=== PATIENT | male | born 1990 | race Caucasian/White ===

== ENCOUNTER 2021-02-02 13:22 | Emergency (ER) | payer MEDICAID, SELFPAY ==
[2021-02-02 13:30] VITALS: BP 136/75; PULSE 79; RESP 18; TEMP 37.3; O2SAT 100; BMI 18.6
--- NOTE | 2021-02-02 14:13 | HMH.EDUTC ---
[facility] Disposition Clinical Impression: Nausea & vomiting Qualifiers: Vomiting type: unspecified Vomiting Intractability: non-intractable Qualified Code(s): R11.2 - Nausea with vomiting, unspecified Diarrhea Qualifiers: Diarrhea type: unspecified type Qualified Code(s): R19.7 - Diarrhea, unspecified Disposition: Home, Self-Care Condition on Discharge: Good Instructions: Nausea and Vomiting-Adult, Diarrhea Additional Instructions: Monitor temperature. Seek treatment if fever develops. Follow-up immediately if new or worse symptoms worsen or no noticeable improvement over 48 hours. Increase fluids such as water, Gatorade, Powerade, juice or Pedialyte with limited formula/dietary in children No food is okay as long as you are drinking. Once ready to eat start bland such as bananas, rice, applesauce, toast. Contagious until no diarrhea, vomiting, fever times 48 hours without medication Avoid antidiarrheals unless told otherwise. Best to let the virus run its course. Follow-up immediately for new or worsening symptoms or no noticeable improvement over the next 48 hours. Prescriptions: ondansetron HCL [Zofran 4mg Tab*] 4 mg PO TIDP PRN 3 Days #10 tab PRN Reason: Nausea Transmission Status: Pending to [id number] Referrals: Rafaela Marroquin [Primary Care Provider] - Forms: Work/School Release Time of Disposition: 14:20 Medical Decision Making - Fernando Inquiry Pt receiving controlled substance: No Vital Signs: 02/02/21 13:30 Temperature 99.1 F Temperature Source Temporal Artery Scan Pulse Rate [Right Brachial] 79 Respiratory Rate 18 Blood Pressure [Right Arm] 136/75 Blood Pressure Mean [Right Arm] 95 Blood Pressure Source [Right Arm] Automatic Cuff Blood Pressure Position [Right Arm] Sitting 02 Sat by Pulse Oximetry 100 Oxygen Delivery Method Room Air Orders (Tests/Meds): ORDERS Category Date Time Status Covid-19 Nasal PCR ([facility]) Routine Lab 02/02/21 14:13 Ordered [facility] HPI - General Chief complaint: Urgent [facility] Stated complaint: fever, cough, vomiting, diarrhea Time Seen by Provider: 02/02/21 14:14 Mode of Arrival: Ambulatory Source of Information: Patient Limitations: No Limitations Description of Symptoms (Recalled from Triage Doc. by RN): PATIENT C/O VOMITING, DIARRHEA, CONGESTION, COUGH AND CHILLS THAT STARTED YESTERDAY HEENT Symptoms (Recalled from RN notes): Yes Resp Symptoms (Recalled from RN notes): No Skin Symptoms (Recalled from RN notes): No MS Symptoms (Recalled from RN notes): No Functional Status (Recalled from RN notes): WNL - History of Present Illness Provider Complaint: 30 yr old male presents for congestion,cough, n/v/d and chills that started last pm at work. pt states numerous co workers at [employer] have had same symptoms. pt states 3 diarreha today and no vomiting today 3 times last pm, denies fever. - Related Data Previous Rx's Medication Instructions Recorded ondansetron HCL [Zofran 4mg Tab*] 4 mg PO TIDP PRN 3 Days #10 tab 02/02/21 Allergies Allergy/AdvReac Type Severity Reaction Status Date / Time codeine [CODEINE] Allergy Unknown Verified 02/02/21 14:00 latex [LATEX] Allergy Unknown Verified 02/02/21 14:00 - Worker's Comp Is this a Worker's Comp case?: No [facility] History - Hepatitis A Screen Drug use history?: No High risk sexual behaviors?: No History of sexually transmitted infection?: No Currently employed?: No Childcare worker?: No Do you have indoor plumbing?: Yes Do you have electricity?: Yes Attestation statement:: This patient has been screened for Hepatitis A risk factors. I have reviewed the patient's past medical history: Yes ROS Obtained: Yes Systems reviewed as appropriate & no additional complaints - Constitutional Constitutional: Reports system reviewed and no additional complaints, except as docu, Reports chills, Denies fatigue, Denies fever(s) - Eyes Eyes: Reports system reviewed and no add
[2021-02-02 14:19] VITALS: BP 136/75; PULSE 79; RESP 18; TEMP 37.3; O2SAT 100
== END 2021-02-02 14:24 | disposition home or self-care (01) ==
PROVIDERS: Emergency Provider Nurse Practitioner Family; PCP Family Medicine
DX: R11.2 Nausea with vomiting, unspecified (principal); R19.7 Diarrhea, unspecified; Z20.822 Contact with and (suspected) exposure to COVID-19
CPT/HCPCS: 99202; C9803; G0463; U0003; U0005

== ENCOUNTER 2024-02-09 12:10 | Outpatient (CLI) | payer MEDICAID, SELFPAY ==
[2024-02-09 18:45] LABS: Chloride 110 mmol/L (98-107)
[2024-02-09 18:46] LABS: Albumin Level 4.7 g/dl (3.5-5.0); Potassium 4.2 mmoL/L (3.5-5.1); Sodium 140 mmol/L (136-145)
[2024-02-09 18:48] LABS: Alanine Aminotransferase 13 U/L (12-78); Aspartate Amino Transferase 19 U/L (17-59); Blood Urea Nitrogen 13 mg/dl (9-20); Estimated Glomerular Filt Rate 111 ml/min (>60); GFR (African American) 134 ML/MIN (>60)
[2024-02-09 18:49] LABS: Albumin/Globulin Ratio 2.2 (1.1-1.8); Alkaline Phosphatase 54 U/L (38-126); Anion Gap 12.2 mEq/L (5-15); Bilirubin,Total 0.9 mg/dl (0.2-1.3); Calcium 9.5 mg/dl (8.4-10.2); Carbon Dioxide 22 mmol/L (22.0-30.0); Globulin 2.1 g/dL (1.3-3.2); Glucose 109 mg/dl (74-100); Total Protein,Serum 6.8 g/dl (6.3-8.2)
[2024-02-09 19:18] LABS: Thyroid Stimulating Hormone 1.23 uIU/mL (0.465-4.68)
[2024-02-09 20:10] LABS: Vitamin B12 469 pg/mL (239-931)
== END 2024-02-09 23:59 | disposition home or self-care (01) ==
LOC: LAB.DROPOF 02-10 10:03
PROVIDERS: PCP Family Medicine; Visit Provider Family Medicine
DX: R42 Dizziness and giddiness (principal)
CPT/HCPCS: 80053; 82607; 84443

== ENCOUNTER 2024-08-02 16:17 | Outpatient (CLI) | payer MEDICAID, SELFPAY ==
[2024-08-02 19:18] LABS: Basophils # 0.1 K/mm3 (0-0.2); Basophils % 0.8 % (0.1-2.0); Eosinophils # 0.2 Kmm3 (0.0-0.4); Hematocrit 48.9 % (42.0-52.0); Lymphocytes # 3.8 K/mm3 (0.7-4.5); Lymphocytes % 36.3 % (10-50); Mean Corpuscular HGB Conc 34.8 g/dL (31.8-35.4); Mean Corpuscular Hemoglobin 32.1 pg (27.0-31.2); Mean Corpuscular Volume 92.4 fl (80-94); Mean Platelet Volume 12.3 fl (7.4-10.4); Monocytes # 0.8 K/mm3 (0.1-1.0); Monocytes % 7.7 % (1.7-9.3); Neutrophils # 5.4 K/mm3 (1.8-7.8); Neutrophils % 51.8 % (37.0-80.0); Nucleated Red Blood Cells # 0 10^3/uL; Nucleated Red Blood Cells % 0 %; Platelet Count 219 K/mm3 (142-424); Red Blood Count 5.29 M/mm3 (4.60-6.20); Red Cell Distribution Width 12.1 % (11.5-17.5); Red Cell Distribution Width-SD 41.2 fL; White Blood Count 10.4 K/mm3 (4.8-10.8)
[2024-08-02 19:40] LABS: Alanine Aminotransferase 17 U/L (12-78); Albumin Level 4.2 g/dl (3.5-5.0); Albumin/Globulin Ratio 1.8 (1.1-1.8); Alkaline Phosphatase 58 U/L (38-126); Anion Gap 10.9 mEq/L (5-15); Aspartate Amino Transferase 18 U/L (17-59); Bilirubin,Total 0.7 mg/dl (0.2-1.3); Blood Urea Nitrogen 15 mg/dl (9-20); Calcium 9.2 mg/dl (8.4-10.2); Carbon Dioxide 25 mmol/L (22.0-30.0); Chloride 107 mmol/L (98-107); Estimated Glomerular Filt Rate 96 ml/min (>60); GFR (African American) 116 ML/MIN (>60); Globulin 2.4 g/dL (1.3-3.2); Glucose 118 mg/dl (74-100); Potassium 3.9 mmoL/L (3.5-5.1); Sodium 139 mmol/L (136-145); Total Protein,Serum 6.6 g/dl (6.3-8.2)
[2024-08-02 20:01] LABS: Monoscreen (Rapid) Negative (Negative)
== END 2024-08-02 23:59 | disposition home or self-care (01) ==
LOC: LAB.DROPOF 08-04 13:08
PROVIDERS: PCP Nurse Practitioner; Visit Provider Nurse Practitioner
DX: J02.9 Acute pharyngitis, unspecified (principal)
CPT/HCPCS: 80053; 85025; 86318